=== PATIENT | male | born 1990 | race Two or more races ===

== ENCOUNTER 2017-04-07 08:18 | Emergency (ER) | payer MEDICAID, OTHER ==
[~2017-04-07] VITALS: Ht 157.5 cm; Wt 61.2 kg
[2017-04-07 08:45] VITALS: BP 140/92
== END 2017-04-07 09:28 | disposition home or self-care (01) ==
LOC: ER 08:18
DX: S60.221A Contusion of right hand, initial encounter (principal); L60.0 Ingrowing nail; F17.210 Nicotine dependence, cigarettes, uncomplicated
CPT/HCPCS: 73130

== ENCOUNTER 2017-12-08 12:32 | Emergency (ER) | payer MEDICAID ==
[~2017-12-08] VITALS: Ht 157.5 cm; Wt 65.8 kg
[2017-12-08] MEDS ORDERED: MIDAZOLAM HCL 5 MG/ML-1ML VIAL ONE (13:18)
[2017-12-08 13:24] LABS: Urine Bacteria NONE SEEN /hpf (None Seen); Urine Blood 3+ /uL (Negative); Urine Hyaline Cast FEW /lpf (0 - 2); Urine Mucus FEW (None Seen); Urine Specific Gravity 1.017 (1.001-1.035); Urine Sperm PRESENT /hpf (None Seen); Urine WBC 6 /hpf (0 - 3)
[2017-12-08] MEDS ORDERED: MIDAZOLAM HCL 5 MG/ML-1ML VIAL IV ONE (13:30)
[2017-12-08 13:36] LABS: Alcohol, Urine < 3.0 mg/dL (0-5); Amphetamine Screen, Urine POSITIVE (NEGATIVE); Barbiturate Scree,Urine NEGATIVE (NEGATIVE); Benzodiazephine Screen, Urine NEGATIVE (NEGATIVE); Cannabinoid Screen, Urine NEGATIVE (NEGATIVE); Cocaine Screen, Urine POSITIVE (NEGATIVE); Opiate Scree,Urine POSITIVE (NEGATIVE); Phencyclidine Screen, Urine NEGATIVE (NEGATIVE)
[2017-12-08] MEDS ORDERED: SODIUM CHLORIDE 0.9% 1,000 ML IV ONE (13:39)
[2017-12-08 14:10] VITALS: BP 122/72
[2017-12-08 14:28] LABS: Basophils # (auto) 0.1 uL; Basophils % (auto) 0.3 % (0.0-2.0); Eosinophils # (auto) 0 uL; Hematocrit 49.1 % (41.0-53.0); Hemoglobin 16.5 g/dL (13.5-17.5); Lymphocytes # (auto) 0.9 uL; Lymphocytes % (auto) 3.9 % (10.0-50.0); Mean Corpuscular Hemoglobin 31.4 pg (28.0-32.0); Mean Corpuscular Hgb Conc. 33.6 g/dL (32.0-36.0); Mean Corpuscular Volume 93.4 fL (80.0-100.0); Monocytes # (auto) 2.3 uL; Neutrophils # (auto) 19.6 uL; Neutrophils % (auto) 85.8 % (37.0-80.0); Nucleated Red Blood Cells % 0.1 %; Platelet Count (auto) 255 10^3/uL (140-450); Red Blood Cells 5.25 10^6/uL (4.5-5.90); White Blood Cell 22.8 10^3/uL (4.4-10.8)
[2017-12-08 14:50] LABS: Blood Alcohol < 3.0 mg/dL (0-5); Magnesium 3.5 mg/dL (1.6-2.6)
[2017-12-08 14:52] LABS: Albumin 4.2 g/dL (3.4-5.0); Calcium 7.5 mg/dL (8.5-10.1); Potassium 3.4 mmol/L (3.5-5.1)
[2017-12-08 15:01] LABS: Bilirubin, Total 2.3 mg/dL (0.2-1.0); Total Protein 8.4 g/dL (6.4-8.2)
== END 2017-12-08 14:50 | disposition left against medical advice (07) ==
LOC: ER 12:32
DX: G25.79 Other drug induced movement disorders (principal); F17.210 Nicotine dependence, cigarettes, uncomplicated; F14.10 Cocaine abuse, uncomplicated; F15.10 Other stimulant abuse, uncomplicated; F11.10 Opioid abuse, uncomplicated; Z53.29 Procedure and treatment not carried out because of patient's decision for other reasons
CPT/HCPCS: 36415; 70450; 71045; 80053; 80307; 80320; 81001; 83735; 84443; 85025; 94761; 96374; 99285; J2250; J7030

== ENCOUNTER 2018-08-15 15:44 | Emergency (ER) | payer MEDICAID ==
[~2018-08-15] VITALS: Ht 157.5 cm; Wt 68.0 kg
[2018-08-15 16:13] VITALS: BP 125/74
[2018-08-15] MEDS ORDERED: TETANUS-DIPTH-ACEL PERTUSSIS 0.5ML SYRG IM ONE (16:30)
== END 2018-08-15 17:00 | disposition home or self-care (01) ==
LOC: ER 15:47
DX: S51.851A Open bite of right forearm, initial encounter (principal); F17.210 Nicotine dependence, cigarettes, uncomplicated; W50.3XXA Accidental bite by another person, initial encounter; Y93.89 Activity, other specified; Y99.8 Other external cause status; Y92.89 Other specified places as the place of occurrence of the external cause
CPT/HCPCS: 90471; 90715

== ENCOUNTER 2024-07-10 02:57 | Emergency (ER) | payer MEDICAID ==
[~2024-07-10] VITALS: Ht 157.5 cm; Wt 62.0 kg
[2024-07-10 02:57] VITALS: BP 139/62; RESP 16; TEMP 98.6; O2SAT 95
--- NOTE | 2024-07-10 03:03 | ED.PDOC ---
HPI Comments 34 year old male presents to the ED with a chief complaint of chest pain onset today (07/10/24) about 2 hours ago. Patient states he was experiencing headache for the past day, was in bed when he began experiencing sharp chest pain. Patient had a CVA February 2024, was put on Aspirin, finished prescription and has not taken it since. He states he used Methamphetamine and Fentanyl 2 days ago. PMHx CVA, asthma, HTN, anxiety. Denies shortness of breath, dizziness, blurry vision, abdominal pain, nausea, vomiting, diarrhea, fevers, chills, cough, congestion. No other symptoms or modifying factors present at this time. Time Seen by MD: 02:55 Primary Care Provider: Florence Michael Notes: Medications, Allergies Allergies: Coded Allergies: NO KNOWN ALLERGIES (Unverified , 07/20/12) Information Source: Patient Mode of Arrival: Ambulatory Severity: Moderate Timing: Hours Duration: Since onset Prehospital treatment: None Location: Chest (L) Radiation: No Radiation Quality: Sharp Onset: At Rest Cardiac Risk Factors: HTN, Drugs PE Risk Factors: None History of: Aspirin Modifying Factors: Nothing Past Medical History PAST MEDICAL HISTORY: Anxiety, Asthma, CVA, HTN Surgical History: Denies all surgeries Family History Family History: Unknown Social History Smoker: Cigarettes Alcohol: Denies ETOH Use Drugs: Methamphetamine, Other Lives In: Home Constitutional: denies: chills, diaphoresis, fatigue, fever, malaise, sweats, weakness, others EENTM: denies: blurred vision, double vision, ear bleeding, ear discharge, ear drainage, ear pain, ear ringing, eye pain, eye redness, hearing loss, mouth pain, mouth swelling, nasal discharge, nose bleeding, nose congestion, nose pain, photophobia, tearing, throat pain, throat swelling, voice changes, others Respiratory: denies: cough, hemoptysis, orthopnea, SOB at rest, shortness of breath, SOB with excertion, stridor, wheezing, others Cardiovascular: reports: chest pain; denies: dizzy spells, diaphoresis, Dyspnea on exertion, edema, irregular heart beat, left arm pain, lightheadedness, palpitations, PND, syncope, others Gastrointestinal: denies: abdomen distended, abdominal pain, blood streaked bowels, constipated, diarrhea, dysphagia, difficulty swallowing, hematemesis, melena, nausea, poor appetite, poor fluid intake, rectal bleeding, rectal pain, vomiting, others Genitourinary: denies: burning, dysuria, flank pain, frequency, hematuria, incontinence, penile discharge, penile sore, pain, testicle pain, testicle swelling, urgency, others Neurological: reports: headache; denies: dizziness, fainting, left sided numbness, left sided weakness, numbness, paresthesia, pre-existing deficit, right sided numbness, right sided weakness, seizure, speech problems, tingling, tremors, weakness, others Musculoskeletal: denies: back pain, gout, joint pain, joint swelling, muscle pain, muscle stiffness, neck pain, others Integumetry: denies: bruises, change in color, change in hair/nails, dryness, laceration, lesions, lumps, rash, wounds, others Allergic/Immunocompromised: denies: Difficulty Healing, Frequent Infections, Hives, Itching, others Hematologic/Lymphatic: denies: anemia, blood clots, easy bleeding, easy bruis ing, swollen glands, others Endocrine: denies: excessive hunger, excessive sweating, excessive thirst, exc essive urination, flushing, intolerance to cold, intolerance to heat, unexplained weight gain, unexplained weight loss, others Psychiatric: denies: anxiety, bipolar disorder, depression, hopeless, panic disorder, schizophrenia, sleepless, suicidal, others All Other Systems: Reviewed and Negative Physical Exam General Appearance: No Apparent Distress, Normal HEENT: Normal ENT Inspection, Pharynx Normal, TMs Normal Neck: Full Range of Motion, Non-Tender, Normal, Normal Inspection Respiratory: Chest Non-Tender, Lungs Clear, No Accessory Muscle Use, No Respiratory Distress, Normal Breath Sounds Cardiovascular: No Edema, No JVD, No Murmur, No Gallop, Normal Peripheral Pulses, Regular Rate/Rhythm Breast Exam: Deferred Gastrointestinal: No Organomegaly, Non Tender, No Pulsatile Mass, Normal Bowel Sounds, Soft Genitalia: Deferred Pelvic: Deferred Rectal: Deferred Extremities: No calf tenderness, Normal capillary refill, Normal inspection, Normal range of motion, Non-tender, No pedal edema Musculoskeletal : Apperance: Normal Neurologic: Alert, 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 Was a procedure done?: No CP Differential Dx Differential Diagnosis: Angina, Electrolyte Disorder, Heart Failure, AK, PAC's, PSVT, Sinus Tachycardia, Torsades De Pointes, V-Fib, V-Tach, Other X-Ray, Labs, Meds, VS Vital Signs Date Time Temp Pulse Resp B/P (MAP) Pulse Ox O2 Delivery O2 Flow Rate FiO2 07/10/24 03:44 51 07/10/24 02:57 53 07/10/24 02:57 98.6 65 16 139/62 (87) 95 98.6 Lab Test 07/10/24 03:48 07/10/24 02:55 Range/Units Troponin I High Sensitivity < 3 L < 3 L </=54 ng/L White Blood Count 9.1 4.4-10.8 10^3/uL Red Blood Count 5.28 4.5-5.90 10^6/uL Hemoglobin 15.5 13.5-17.5 g/dL Hematocrit 45.8 41.0-53.0 % Mean Corpuscular Volume 86.7 80.0-100.0 fL Mean Corpuscular Hemoglobin 29.4 28.0-32.0 pg Mean Corpuscular Hemoglobin Concent 34.0 32.0-36.0 g/dL Red Cell Distribution Width 13.7 11.8-14.3 % Platelet Count 160 140-450 10^3/uL Mean Platelet Volume 6.8 L 6.9-10.8 fL Neutrophils (%) (Auto) 53.7 37.0-80.0 % Lymphocytes (%) (Auto) 34.4 10.0-50.0 % Monocytes (%) (Auto) 8.8 0.0-12.0 % Eosinophils (%) (Auto) 2.4 0.0-7.0 % Basophils (%) (Auto) 0.7 0.0-2.0 % Neutrophils # (Auto) 4.9 1.6-8.6 10 ^3/uL Lymphocytes # (Auto) 3.1 0.4-5.4 10 ^3/uL Monocytes # (Auto) 0.8 0-1.3 10 ^3/uL Eosinophils # (Auto) 0.2 0-0.8 10 ^3/uL Basophils # (Auto) 0.1 0-0.2 10 ^3/uL Nucleated Red Blood Cells 0.1 % Sodium Level 139 136-145 mmol/L Potassium Level 4.0 3.5-5.1 mmol/L Chloride Level 104 98-107 mmol/L Carbon Dioxide Level 28 20-31 mmol/L Anion Gap 7 5-15 Blood Urea Nitrogen 13 9-23 mg/dL Creatinine 0.89 0.700-1.30 mg/dL Glomerular Filtration Rate Calc 116 >90 mL/min BUN/Creatinine Ratio 14.6 10.0-20.0 Serum Glucose 107 H 74-106 mg/dL Calcium Level 9.2 8.7-10.4 mg/dL Total Bilirubin 0.3 0.2-1.0 mg/dL Aspartate Amino Transferase (AST) 19 13-40 U/L Alanine Aminotransferase (ALT) 19 7-40 U/L Alkaline Phosphatase 103 46-116 U/L Total Protein 6.8 5.7-8.2 g/dL Albumin 4.3 3.2-4.8 g/dL Time of 1ST Reevaluation: 03:25 Reevaluation 1ST: Unchanged Patient Education/Counseling: Diagnosis, Treatment, Prognosis Family Education/Counseling: No Family Present Departure 1 Departure Time of Disposition: 05:00 Impression: Primary Impression: Atypical chest pain Disposition: 01 HOME / SELF CARE / HOMELESS Condition: Stable Discharged With: Self Critical Care Note Critical Care Time?: No Stability Stability form required: No Heart Score Heart Score: Heart Score Response (Comments) Value History Slightly Suspicious 0 EKG Normal 0 Age <45 0 Risk Factors 1 or 2 risk factors 1 Troponin Normal limit 0 Total 1 I personally scribed for BANDAR COREY MD ([email or web address]) on 07/10/24 at 03:03. Electronically submitted by Rika Amado ([email or web address]). BANDAR COERY MD Jul 10, 2024 03:03
--- NOTE | 2024-07-10 03:30 | DVH ---
CHEST RADIOGRAPH Indication: chest pain Technique: Single frontal view of the chest was obtained COMPARISON: None FINDINGS: Lines and Tubes: None Lungs: Clear Pleura: No effusion. No pneumothorax. Cardiomediastinal contours: Unremarkable Bones: Unremarkable IMPRESSION: No acute disease.
[2024-07-10 03:36] LABS: Alanine Aminotransferase 19 U/L (7-40); Albumin 4.3 g/dL (3.2-4.8); Alkaline Phosphatase 103 U/L (46-116); Anion Gap 7 (5-15); Aspartate Aminotransferase 19 U/L (13-40); BUN/Creatinine Ratio 14.6 (10.0-20.0); Blood Urea Nitrogen 13 mg/dL (9-23); Calcium 9.2 mg/dL (8.7-10.4); Carbon Dioxide 28 mmol/L (20-31); Chloride 104 mmol/L (98-107); Sodium 139 mmol/L (136-145); Total Protein 6.8 g/dL (5.7-8.2)
[2024-07-10 03:37] LABS: Basophils # (auto) 0.1 10 ^3/uL (0-0.2); Basophils % (auto) 0.7 % (0.0-2.0); Eosinophils # (auto) 0.2 10 ^3/uL (0-0.8); Eosinophils % (auto) 2.4 % (0.0-7.0); Hematocrit 45.8 % (41.0-53.0); Hemoglobin 15.5 g/dL (13.5-17.5); Lymphocytes # (auto) 3.1 10 ^3/uL (0.4-5.4); Lymphocytes % (auto) 34.4 % (10.0-50.0); Mean Corpuscular Hemoglobin 29.4 pg (28.0-32.0); Mean Corpuscular Volume 86.7 fL (80.0-100.0); Monocytes # (auto) 0.8 10 ^3/uL (0-1.3); Monocytes % (auto) 8.8 % (0.0-12.0); Neutrophils # (auto) 4.9 10 ^3/uL (1.6-8.6); Neutrophils % (auto) 53.7 % (37.0-80.0); Nucleated Red Blood Cells % 0.1 %; Platelet Count (auto) 160 10^3/uL (140-450); Red Blood Cells 5.28 10^6/uL (4.5-5.90); Red Cell Distribution Width 13.7 % (11.8-14.3); White Blood Cell 9.1 10^3/uL (4.4-10.8)
[2024-07-10 03:39] LABS: Bilirubin, Total 0.3 mg/dL (0.2-1.0); Glucose 107 mg/dL (74-106)
[2024-07-10 03:44] VITALS: PULSE 51
--- NOTE | 2024-07-10 03:47 | ECG ---
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
== END 2024-07-10 05:15 | disposition home or self-care (01) ==
LOC: ER 02:57
DX: R07.89 Other chest pain (principal); F17.210 Nicotine dependence, cigarettes, uncomplicated; F19.90 Other psychoactive substance use, unspecified, uncomplicated; I10 Essential (primary) hypertension; F41.9 Anxiety disorder, unspecified; J45.909 Unspecified asthma, uncomplicated; Z86.73 Personal history of transient ischemic attack (TIA), and cerebral infarction without residual deficits
CPT/HCPCS: 36415; 71045; 80053; 84484; 85025; 93005

== ENCOUNTER 2024-08-25 14:45 | Emergency (ER) | payer MEDICAID ==
[~2024-08-25] VITALS: Ht 157.5 cm; Wt 68.0 kg
--- NOTE | 2024-08-25 15:56 | ED.PDOC ---
History of Present Illness(SKN HPI Comments 34 year old homeless male presents to the ER w/ prior MHx of CVA(x3 w/ left sided deficits), Asthma, Anxiety, HTN and the c/c of an animal bite to the posterior aspect of the right calf yesterday while walking on [facility]. Denies abnormal animal behavior Denies history of immunocompromise (HIV hep B hep C) Denies fever chills night sweats Chief Complaint: Lower Extremity Time Seen by MD: 15:30 Primary Care Provider: Florence History of Present Illness: Nurses Notes, Medications, Allergies Allergies: Coded Allergies: NO KNOWN ALLERGIES (Unverified , 07/20/12) Information Source: Patient Mode of Arrival: Wheelchair Severity: Moderate Timing: Hours Duration: Since onset, Hours Prehospital treatment: None Location: Leg Mechanism: Dog Developed: Generalized erythema Occurence: Outdoors Object: None Condition of Object: None Wound Type: Puncture (by a dog bite) Immunization Status of Animal: Unknown Tetanus: Unknown History of: None Associated Signs and Symptoms: Redness, Swelling Past Medical History PAST MEDICAL HISTORY: Anxiety, Asthma, CVA (x3 w/ left sided deficits), HTN Surgical History: Denies all surgeries Family History Family History: Reviewed,noncontributory to illness, Unknown Social History Smoker: Cigarettes Alcohol: Denies ETOH Use Drugs: Marijuana, Methamphetamine Lives In: Home Constitutional: denies: chills, diaphoresis, fatigue, fever, malaise, sweats, weakness, others EENTM: denies: blurred vision, double vision, ear bleeding, ear discharge, ear drainage, ear pain, ear ringing, eye pain, eye redness, hearing loss, mouth pain, mouth swelling, nasal discharge, nose bleeding, nose congestion, nose pain, photophobia, tearing, throat pain, throat swelling, voice changes, others Respiratory: denies: cough, hemoptysis, orthopnea, SOB at rest, shortness of breath, SOB with excertion, stridor, wheezing, others Cardiovascular: reports: edema (+1 pitting); denies: chest pain, dizzy spells, diaphoresis, Dyspnea on exertion, irregular heart beat, left arm pain, lightheadedness, palpitations, PND, syncope, others Gastrointestinal: denies: abdomen distended, abdominal pain, blood streaked bowels, constipated, diarrhea, dysphagia, difficulty swallowing, hematemesis, melena, nausea, poor appetite, poor fluid intake, rectal bleeding, rectal pain, vomiting, others Genitourinary: denies: burning, dysuria, flank pain, frequency, hematuria, incontinence, penile discharge, penile sore, pain, testicle pain, testicle swelling, urgency, others Neurological: denies: dizziness, fainting, headache, left sided numbness, left sided weakness, numbness, paresthesia, pre-existing deficit, right sided numbness, right sided weakness, seizure, speech problems, tingling, tremors, weakness, others Musculoskeletal: denies: back pain, gout, joint pain, joint swelling, muscle pain, muscle stiffness, neck pain, others Integumetry: reports: others (puncture wound S/P dog bite); denies: bruises, change in color, change in hair/nails, dryness, laceration, lesions, lumps, rash, wounds Allergic/Immunocompromised: denies: Difficulty Healing, Frequent Infections, Hives, Itching, others Hematologic/Lymphatic: denies: anemia, blood clots, easy bleeding, easy bruising, swollen glands, others Endocrine: denies: excessive hunger, excessive sweating, excessive thirst, excessive urination, flushing, intolerance to cold, intolerance to heat, unexplained weight gain, unexplained weight loss, others Psychiatric: denies: anxiety, bipolar disorder, depression, hopeless, panic disorder, schizophrenia, sleepless, suicidal, others All Other Systems: Reviewed and Negative Physical Exam General Appearance: No Apparent Distress, Normal HEENT: Normal ENT Inspection, Pharynx Normal, TMs Normal Neck: Full Range of Motion, Non-Tender, Normal, Normal Inspection Respiratory: Chest Non-Tender, Lungs Clear, No Accessory Muscle Use, No Respiratory Distress, Normal Breath Sounds Cardiovascular: No Murmur, No Gallop, Regular Rate/Rhythm, Other Breast Exam: Deferred Gastrointestinal: No Organomegaly, Non Tender, No Pulsatile Mass, Normal Bowel Sounds, Soft Genitalia: Deferred Pelvic: Deferred Rectal: Deferred Extremities: No calf tenderness, Normal capillary refill, Normal inspection, Normal range of motion, Non-tender, No pedal edema Musculoskeletal : Location: Right Extremity Location: Great Toe (right medial aspect of the great toe infected w/ mild discharge and tender to touch), Leg (erythema, warm to touch, +1 pitting edema. DP 2+. Cap < 3 sec. 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 Was a procedure done?: No Images 1 - 1 puncture wound. No dc. Swelling throughout the lower leg. Warmth to touch. No fluctuance. Differential Diagnosis (INTG) Differential Diagnosis: Cellulitis, Contusion, Puncture Wound, Other X-Ray, Labs, Meds, VS Vital Signs Date Time Temp Pulse Resp B/P (MAP) Pulse Ox O2 Delivery O2 Flow Rate FiO2 08/25/24 17:21 86 16 94 Room Air* 0 21 08/25/24 17:20 98.4 86 16 113/79 (90) 94 98.4 08/25/24 15:46 99.8 95 16 108/68 (81) 96 99.8 Lab Test 08/25/24 19:00 08/25/24 18:57 08/25/24 15:30 Range/Units Urine Color Yellow Yellow Urine Clarity Clear Clear Urine pH 6.5 5.0-9.0 Urine Specific [place] > 1.050 H 1.001-1.035 Urine Protein 1+ H Negative Urine Ketones Negative Negative Urine Blood 3+ H Negative /uL Urine Nitrite Negative Negative Urine Bilirubin Negative Negative Urine Urobilinogen 3 H Negative mg/dL Urine Leukocyte Esterase Negative Negative /uL Urine RBC 22 0 - 3 /hpf Urine Microscopic WBC 18 H 0-3 /HPF Urine Squamous Epithelial Cells None seen <5 /hpf Urine Bacteria None seen None Seen /hpf Urine Yeast (Budding) Occasional None Seen /hpf Urine Glucose Normal Normal mg/dL Urine Opiates Screen Neg NEGATIVE Urine Fentanyl Screen Pos NEGATIVE Urine Barbiturates Screen Neg NEGATIVE Urine Phencyclidine Screen Neg NEGATIVE Urine Amphetamines Screen Pos NEGATIVE Urine Benzodiazepines Screen Neg NEGATIVE Urine Cocaine Screen Neg NEGATIVE Urine Cannabinoids Screen Neg NEGATIVE Erythrocyte Sedimentation Rate 20 0-20 mm/hr White Blood Count 24.8 H 4.4-10.8 10^3/uL Red Blood Count 4.64 4.5-5.90 10^6/uL Hemoglobin 14.0 13.5-17.5 g/dL Hematocrit 41.4 41.0-53.0 % Mean Corpuscular Volume 89.3 80.0-100.0 fL Mean Corpuscular Hemoglobin 30.1 28.0-32.0 pg Mean Corpuscular Hemoglobin Concent 33.7 32.0-36.0 g/dL Red Cell Distribution Width 14.6 H 11.8-14.3 % Platelet Count 328 140-450 10^3/uL Mean Platelet Volume 6.4 L 6.9-10.8 fL Neutrophils (%) (Auto) 77.2 37.0-80.0 % Lymphocytes (%) (Auto) 9.7 L 10.0-50.0 % Monocytes (%) (Auto) 12.7 H 0.0-12.0 % Eosinophils (%) (Auto) 0.1 0.0-7.0 % Basophils (%) (Auto) 0.3 0.0-2.0 % Neutrophils # (Auto) 19.1 H 1.6-8.6 10 ^3/uL Lymphocytes # (Auto) 2.4 0.4-5.4 10 ^3/uL Monocytes # (Auto) 3.1 H 0-1.3 10 ^3/uL Eosinophils # (Auto) 0 0-0.8 10 ^3/uL Basophils # (Auto) 0.1 0-0.2 10 ^3/uL Nucleated Red Blood Cells 0.0 % Sodium Level 136 136-145 mmol/L Potassium Level 4.0 3.5-5.1 mmol/L Chloride Level 104 98-107 mmol/L Carbon Dioxide Level 23 20-31 mmol/L Anion Gap 9 5-15 Blood Urea Nitrogen 9 9-23 mg/dL Creatinine 0.90 0.700-1.30 mg/dL Glomerular Filtration Rate Calc 116 >90 mL/min BUN/Creatinine Ratio 10.0 10.0-20.0 Serum Glucose 109 H 74-106 mg/dL Lactic Acid Level 1.8 0.4-2.0 mmol/L Calcium Level 9.1 8.7-10.4 mg/dL Total Bilirubin 1.0 0.2-1.0 mg/dL Aspartate Amino Transferase (AST) 22 13-40 U/L Alanine Aminotransferase (ALT) 14 7-40 U/L Alkaline Phosphatase 100 46-116 U/L C-Reactive Protein High Sensitivity 8.63 H <1.0 mg/dL Total Protein 6.5 5.7-8.2 g/dL Albumin 3.6 3.2-4.8 g/dL Current Medications Medications (Trade) Dose Ordered Sig/Je Route Start Time Stop Time Status Last Admin Sodium Chloride 1,000 ml @ 1,000 mls/hr Q1H ONCE IV 08/25/24 15:45 08/25/24 16:44 DC 08/25/24 17:39 Ceftriaxone Sodium 50 ml @ 100 mls/hr ONCE ONCE IV 08/25/24 15:45 08/25/24 16:14 DC 08/25/24 17:39 Ampicillin Sodium/ Sulbactam Sodium 3 gm/Sodium Chloride 100 ml @ 100 mls/hr ONCE STAT IV 08/25/24 15:40 08/25/24 16:39 DC 08/25/24 18:47 Diphtheria/ Tetanus/Acell Pertussis (Boostrix T-Dap) 0.5 ml ONCE ONCE IM 08/25/24 15:45 08/25/24 15:46 DC 08/25/24 17:40 X-Ray, Labs, Meds, VS Comment 34M presents to the ER w/ prior MHx of CVA(x3 w/ left sided deficits), Asthma, Anxiety, HTN and the c/c of an animal bite. Patient arrives alert and oriented, ABC's intact, afebrile, vital signs stable, saturating well in room air Peripheral IV insertion+ labs were ordered. CBC was ordered to exclude anemia, blood loss, or infection. CMP was ordered to exclude electrolyte abnormalities, renal failure, dehydration, hyperglycemia and/or liver enzyme abnormalities. Lactic acid and blood cultures were ordered Sed Rate + CRP Urinalysis was ordered to rule out UTI or hematuria. Diagnostic imaging ordered by me and results interpreted by radiology : CT results showed: Extensive fat stranding, edema, and skin thickening throughout the right lower extremity is suggestive of cellulitis. No discernible abscess identified. US results showed: Negative DVT Patient was given:Rocephin, Unasyn, and IV fluids. Tetanus was updated. Tolerated medications with no adverse reaction. The area of infection does not appear to have any loculations/induration based on physical exam. Patient well appearing. VSS. Given History, Exam, and Workup I have low suspicion for Necrotizing Fasciitis Osteomyelitis. Considered DVT and abscess formation based on presenting symptoms. The patient's workup reveals that the patient needs further evaluation and/or treatment for the above medical conditions. Patient verbalized understanding of the above and is awaiting further evaluation by the admitting service. 1800: Pending CT scan. Patient will be endorsed to Po for admission. Time of 1ST Reevaluation: 15:30 Reevaluation 1ST: Unchanged Time of 2ND Reevaluation: 17:20 Reevaluation 2ND: Unchanged Patient Education/Counseling: Diagnosis, Treatment, Prognosis Family Education/Counseling: No Family Present SEPSIS Sepsis Screen Physician Orders Rt Lower Dvt (08/25/24 15:40) Rt Lower Extremity W Con (08/25/24 15:40) Blood Culture (08/25/24 15:40) Vital Signs Date Time Temp Pulse Resp B/P (MAP) Pulse Ox O2 Delivery O2 Flow Rate FiO2 08/25/24 17:21 86 16 94 Room Air* 0 21 08/25/24 17:20 98.4 86 16 113/79 (90) 94 98.4 08/25/24 15:46 99.8 95 16 108/68 (81) 96 99.8 Laboratory Tests Test 08/25/24 15:30 Lactic Acid Level 1.8 mmol/L (0.4-2.0) White Blood Count 24.8 10^3/uL (4.4-10.8) H Departure 1 Departure Time of Disposition: 18:04 Impression: Primary Impression: Dog bite Qualified Codes: W54.0XXA - Bitten by dog, initial encounter Additional Impressions: Cellulitis of right leg Ingrown toenail UTI (urinary tract infection) Qualified Codes: N30.00 - Acute cystitis without hematuria Disposition: ADMITTED INPATIENT Condition: Serious Critical Care Note Critical Care Time?: No Stability Stability form required: No Heart Score Heart Score: Heart Score Response (Comments) Value History N/A 0 EKG N/A 0 Age N/A 0 Risk Factors N/A 0 Troponin N/A 0 Total 0 I personally scribed for DESMOND SCHAFER NP ([email or web address]) on 08/25/24 at 15:56. Electronically submitted by Derek Reynolds ([email or web address]). DESMOND SCHAFER NP Aug 25, 2024 15:56 LYNNE TAM Aug 25, 2024 18:05
[2024-08-25 16:09] LABS: Hematocrit 41.4 % (41.0-53.0); Hemoglobin 14.0 g/dL (13.5-17.5); Mean Corpuscular Hemoglobin 30.1 pg (28.0-32.0); Mean Corpuscular Volume 89.3 fL (80.0-100.0); Nucleated Red Blood Cells % 0.0 %
[2024-08-25 16:30] LABS: Alanine Aminotransferase 14 U/L (7-40); Alkaline Phosphatase 100 U/L (46-116); Anion Gap 9 (5-15); BUN/Creatinine Ratio 10.0 (10.0-20.0); Calcium 9.1 mg/dL (8.7-10.4); Carbon Dioxide 23 mmol/L (20-31); Chloride 104 mmol/L (98-107); Potassium 4.0 mmol/L (3.5-5.1); Sodium 136 mmol/L (136-145); Total Protein 6.5 g/dL (5.7-8.2)
[2024-08-25 16:31] LABS: Albumin 3.6 g/dL (3.2-4.8); Bilirubin, Total 1.0 mg/dL (0.2-1.0); Blood Urea Nitrogen 9 mg/dL (9-23); Glucose 109 mg/dL (74-106)
[2024-08-25 17:20] VITALS: BP 113/79; TEMP 98.4
[2024-08-25 17:21] VITALS: PULSE 86; RESP 16; O2SAT 94
[2024-08-25] MEDS: cefTRIAXone 1GM/50ML D5W 50 ML IV ONE (17:39)
[2024-08-25] MEDS: SODIUM CHLORIDE 0.9% 1,000 ML IV ONE (17:39)
[2024-08-25] MEDS: TETANUS-DIPTH-ACEL PERTUSSIS 0.5ML SYR Tdap IM ONE (17:40)
--- NOTE | 2024-08-25 17:53 | DVH ---
Right lower extremity venous duplex Clinical History: R/o dvt Comparison: None Technique: Duplex Doppler evaluation of the deep venous system of the right lower extremity from the common femo ral vein to the popliteal vein including color Doppler and spectral/pulsed waveform analysis was perf ormed. Findings: The common femoral vein demonstrates appropriate compressibility and waveform variability. There is compressibility/patency of the great saphenous vein at the proximal thigh. The femoral vein demonstrates appropriate compressibility and waveform variability. The deep femoral vein demonstrates appropriate compressibility and waveform variability. The popliteal vein demonstrates appropriate compressibility and waveform variability. There is normal compressibility at the tibioperoneal trunk. Prominent 4.4 cm lymph node is seen in the right groin Impression: 1. No right femoropopliteal venous thrombosis. 2. Prominent 4.4 cm lymph node is seen in the right groin
[2024-08-25] MEDS: AMPICILLIN & SULBACTAM SODIUM 3 GM in SODIUM CHL 0.9% 100 ML IV STA (18:47)
[2024-08-25] MEDS: IOHEXOL 300 MG/ML 100ML BOTTLE IJ ONE (18:52)
[2024-08-25] MEDS ORDERED: ACETAMINOPHEN 325 MG TAB PO PRN (19:30)
[2024-08-25] MEDS ORDERED: TEMAZEPAM 15 MG CAP PO PRN (19:30)
[2024-08-25] MEDS ORDERED: VANCOMYCIN PER PHARMACY 0 MG IV SCH (19:30)
[2024-08-25] MEDS ORDERED: ONDANSETRON HCL 4 MG/2 ML VIAL IV PRN (19:30)
[2024-08-25] MEDS ORDERED: HYDROcodone-ACET 5/325MG TAB PO PRN (19:30)
--- NOTE | 2024-08-25 19:51 | DVH ---
INDICATION: Dog bite to right posterior calf. r/o abscess formation COMPARISON: None TECHNIQUE: CT of the right leg was performed with contrast. Volume transverse images were obtained an d reconstructed in multiple planes using bone and soft tissue algorithms. All CT scans at this medical facility are performed using dose modulation techniques as appropriate t o a performed exam including the following: Automated exposure control was utilized; adjustment of th e MA and/or KV according to patient size; and use of iterative reconstruction technique. Radiation Dose Information: CT Dose: CTDI volume is 7.75 mGy. Dose-length product is 494.79 mGy*cm Contrast: 100 mL of Omni 300 was injected. FINDINGS: Extensive fat stranding, edema, and skin thickening throughout the right lower extremity is suggestiv e of cellulitis. No discernible abscess identified. The alignment is normal. The joint spaces are normal. There is no fracture, dislocation or aggressive osseous lesion. There is no joint effusion. IMPRESSION: Extensive fat stranding, edema, and skin thickening throughout the right lower extremity is suggestiv e of cellulitis. No discernible abscess identified.
[2024-08-25] MEDS: VANCOMYCIN 1.5GM/300ML 300 ML IV ONE (20:21)
[2024-08-25 21:23] LABS: Urine Budding Yeast OCCASIONAL /hpf (None Seen); Urine Protein, UAD 1+ (Negative)
[2024-08-25 21:30] LABS: Amphetamine Screen, Urine Pos (NEGATIVE); Barbiturate Scree,Urine Neg (NEGATIVE); Benzodiazephine Screen, Urine Neg (NEGATIVE); Cannabinoid Screen, Urine Neg (NEGATIVE); Cocaine Screen, Urine Neg (NEGATIVE); Opiate Scree,Urine Neg (NEGATIVE); Phencyclidine Screen, Urine Neg (NEGATIVE)
[2024-08-25] MEDS ORDERED: ATORVASTATIN 20 MG TAB PO SCH (22:00)
[2024-08-26] MEDS ORDERED: cefTRIAXone 1GM/50ML D5W 50 ML IV SCH (09:00)
== END 2024-08-25 21:15 | disposition left against medical advice (07) ==
LOC: ER 14:49 → OVERFLOW 19:23 → UNDOADMIN 19:23 → UNDODISIN 21:15 → OVERFLOW 21:15
DX: S81.851A Open bite, right lower leg, initial encounter (principal); L03.115 Cellulitis of right lower limb; L60.0 Ingrowing nail; N39.0 Urinary tract infection, site not specified; F17.210 Nicotine dependence, cigarettes, uncomplicated; J45.909 Unspecified asthma, uncomplicated; I10 Essential (primary) hypertension; Z86.73 Personal history of transient ischemic attack (TIA), and cerebral infarction without residual deficits; F12.90 Cannabis use, unspecified, uncomplicated; F15.90 Other stimulant use, unspecified, uncomplicated; W54.0XXA Bitten by dog, initial encounter; Y93.89 Activity, other specified; Y92.89 Other specified places as the place of occurrence of the external cause; Y99.8 Other external cause status
CPT/HCPCS: 36415; 73701; 80053; 80307; 81001; 83605; 85025; 85652; 86141; 87040; 90471; 90715; 93971; 96365; 96367; 99285; J0696; J3375; J7030; Q9967; 96372; G0378

== ENCOUNTER 2024-08-26 14:08 | Inpatient (IN) | payer MEDICAID ==
[~2024-08-26] VITALS: Ht 157.5 cm; Wt 68.0 kg
[2024-08-26 14:14] VITALS: TEMP 99.3
[2024-08-26] MEDS: AMPICILLIN & SULBACTAM SODIUM 3 GM in SODIUM CHL 0.9% 100 ML IV STA (14:20)
[2024-08-26 15:09] LABS: Hematocrit 38.7 % (41.0-53.0); Hemoglobin 13.3 g/dL (13.5-17.5); Mean Corpuscular Hemoglobin 30.3 pg (28.0-32.0); Mean Corpuscular Volume 87.9 fL (80.0-100.0); Nucleated Red Blood Cells % 0.0 %
--- NOTE | 2024-08-26 15:13 | ED.PDOC ---
History of Present Illness HPI Comments 34 year old homeless male presents to the ER w/ prior MHx of CVA(x3 w/ left sided deficits), Asthma, Anxiety, HTN and the c/c of an animal bite to the posterior aspect of the right calf yesterday while walking on [facility]. Denies abnormal animal behavior Immunization status up-to-date/not up-to-date Denies abnormal animal behavior Denies history of immunocompromise (HIV hep B hep C) Denies fever chills night sweats Denies redness around the area Chief Complaint: Wound Check Time Seen by MD: 15:10 Primary Care Provider: UNKNOWN Reviewed Notes: Nurses Notes, Medications, Allergies Allergies: Coded Allergies: NO KNOWN ALLERGIES (Unverified , 07/20/12) Information Source: Patient Mode of Arrival: Ambulatory Severity: Moderate Timing: Days Duration: Since onset, Days Prehospital treatment: None Past Medical History PAST MEDICAL HISTORY: Anxiety, Asthma, CVA (x3 w/ left sided deficits), HTN Surgical History: Denies all surgeries Family History Family History: Reviewed,noncontributory to illness, Unknown Social History Smoker: Cigarettes Alcohol: Denies ETOH Use Drugs: Marijuana, Methamphetamine, Other (fent) Lives In: Home Constitutional: reports: others (animal bite); denies: chills, diaphoresis, fatigue, fever, malaise, sweats, weakness EENTM: denies: blurred vision, double vision, ear bleeding, ear discharge, ear drainage, ear pain, ear ringing, eye pain, eye redness, hearing loss, mouth pain, mouth swelling, nasal discharge, nose bleeding, nose congestion, nose pain, photophobia, tearing, throat pain, throat swelling, voice changes, others Respiratory: denies: cough, hemoptysis, orthopnea, SOB at rest, shortness of breath, SOB with excertion, stridor, wheezing, others Cardiovascular: denies: chest pain, dizzy spells, diaphoresis, Dyspnea on exertion, edema, irregular heart beat, left arm pain, lightheadedness, palpitations, PND, syncope, others Gastrointestinal: denies: abdomen distended, abdominal pain, blood streaked bowels, constipated, diarrhea, dysphagia, difficulty swallowing, hematemesis, melena, nausea, poor appetite, poor fluid intake, rectal bleeding, rectal pain, vomiting, others Genitourinary: denies: burning, dysuria, flank pain, frequency, hematuria, incontinence, penile discharge, penile sore, pain, testicle pain, testicle swelling, urgency, others Neurological: denies: dizziness, fainting, headache, left sided numbness, left sided weakness, numbness, paresthesia, pre-existing deficit, right sided numbness, right sided weakness, seizure, speech problems, tingling, tremors, weakness, others Musculoskeletal: denies: back pain, gout, joint pain, joint swelling, muscle pain, muscle stiffness, neck pain, others Integumetry: denies: bruises, change in color, change in hair/nails, dryness, laceration, lesions, lumps, rash, wounds, others Allergic/Immunocompromised: denies: Difficulty Healing, Frequent Infections, Hives, Itching, others Hematologic/Lymphatic: denies: anemia, blood clots, easy bleeding, easy bruising, swollen glands, others Endocrine: denies: excessive hunger, excessive sweating, excessive thirst, excessive urination, flushing, intolerance to cold, intolerance to heat, unexplained weight gain, unexplained weight loss, others Psychiatric: denies: anxiety, bipolar disorder, depression, hopeless, panic disorder, schizophrenia, sleepless, suicidal, others All Other Systems: Reviewed and Negative Physical Exam General Appearance: No Apparent Distress, Normal HEENT: Normal ENT Inspection, Pharynx Normal, TMs Normal Neck: Full Range of Motion, Non-Tender, Normal, Normal Inspection Respiratory: Chest Non-Tender, Lungs Clear, No Accessory Muscle Use, No Respiratory Distress, Normal Breath Sounds Cardiovascular: No Edema, No JVD, No Murmur, No Gallop, Normal Peripheral Pulses, Regular Rate/Rhythm Breast Exam: Deferred Gastrointestinal: No Organomegaly, Non Tender, No Pulsatile Mass, Normal Bowel Sounds, Soft Genitalia: Deferred Pelvic: Deferred Rectal: Deferred Extremities: No calf tenderness, Normal capillary refill, Normal inspection, Normal range of motion, Non-tender, No pedal edema Musculoskeletal : Location: Right Extremity Location: Great Toe (right medial aspect of the great toe infected w/ mild discharge and tender to touch), Leg (erythema, warm to touch, +1 pitting edema. DP 2+. Cap < 3 sec. 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 Was a procedure done?: No Images 1 - 1 puncture wound. No dc. Swelling throughout the lower leg. Warmth to touch. No fluctuance. 2 - 1 puncture wound. No dc. Swelling throughout the lower leg. Warmth to touch. No fluctuance. Differential Dx Considerations may include: cellulitis X-Ray, Labs, Meds, VS Vital Signs Date Time Temp Pulse Resp B/P (MAP) Pulse Ox O2 Delivery O2 Flow Rate FiO2 08/26/24 17:45 80 14 108/66 (80) 96 08/26/24 14:14 99.3 99 18 123/74 (90) 95 99.3 Lab Test 08/26/24 18:24 08/26/24 14:50 Range/Units Urine Color Yellow Yellow Urine Clarity Clear Clear Urine pH 6.5 5.0-9.0 Urine Specific [place] 1.042 H 1.001-1.035 Urine Protein 2+ H Negative Urine Ketones Trace Negative Urine Blood 3+ H Negative /uL Urine Nitrite Negative Negative Urine Bilirubin 1+ Negative Urine Urobilinogen Over Negative mg/dL Urine Leukocyte Esterase 1+ Negative /uL Urine RBC 252 0 - 3 /hpf Urine Microscopic WBC 20 H 0-3 /HPF Urine Squamous Epithelial Cells Few <5 /hpf Urine Bacteria Few H None Seen /hpf Urine Mucus Few None Seen Urine Glucose Normal Normal mg/dL Urine Opiates Screen Neg NEGATIVE Urine Fentanyl Screen Pos NEGATIVE Urine Barbiturates Screen Neg NEGATIVE Urine Phencyclidine Screen Neg NEGATIVE Urine Amphetamines Screen Pos NEGATIVE Urine Benzodiazepines Screen Neg NEGATIVE Urine Cocaine Screen Neg NEGATIVE Urine Cannabinoids Screen Neg NEGATIVE White Blood Count 19.4 H 4.4-10.8 10^3/uL Red Blood Count 4.40 L 4.5-5.90 10^6/uL Hemoglobin 13.3 L 13.5-17.5 g/dL Hematocrit 38.7 L 41.0-53.0 % Mean Corpuscular Volume 87.9 80.0-100.0 fL Mean Corpuscular Hemoglobin 30.3 28.0-32.0 pg Mean Corpuscular Hemoglobin Concent 34.4 32.0-36.0 g/dL Red Cell Distribution Width 14.8 H 11.8-14.3 % Platelet Count 388 140-450 10^3/uL Mean Platelet Volume 6.6 L 6.9-10.8 fL Neutrophils (%) (Auto) 79.8 37.0-80.0 % Lymphocytes (%) (Auto) 8.0 L 10.0-50.0 % Monocytes (%) (Auto) 11.5 0.0-12.0 % Eosinophils (%) (Auto) 0.3 0.0-7.0 % Basophils (%) (Auto) 0.4 0.0-2.0 % Neutrophils # (Auto) 15.5 H 1.6-8.6 10 ^3/uL Lymphocytes # (Auto) 1.5 0.4-5.4 10 ^3/uL Monocytes # (Auto) 2.2 H 0-1.3 10 ^3/uL Eosinophils # (Auto) 0.1 0-0.8 10 ^3/uL Basophils # (Auto) 0.1 0-0.2 10 ^3/uL Nucleated Red Blood Cells 0.0 % Erythrocyte Sedimentation Rate 67 H 0-20 mm/hr Sodium Level 139 136-145 mmol/L Potassium Level 4.3 3.5-5.1 mmol/L Chloride Level 105 98-107 mmol/L Carbon Dioxide Level 26 20-31 mmol/L Anion Gap 8 5-15 Blood Urea Nitrogen 12 9-23 mg/dL Creatinine 0.89 0.700-1.30 mg/dL Glomerular Filtration Rate Calc 116 >90 mL/min BUN/Creatinine Ratio 13.5 10.0-20.0 Serum Glucose 95 74-106 mg/dL Lactic Acid Level 1.2 0.4-2.0 mmol/L Calcium Level 9.0 8.7-10.4 mg/dL Total Bilirubin 0.5 0.2-1.0 mg/dL Aspartate Amino Transferase (AST) 20 13-40 U/L Alanine Aminotransferase (ALT) 12 7-40 U/L Alkaline Phosphatase 96 46-116 U/L C-Reactive Protein High Sensitivity 12.52 H <1.0 mg/dL Total Protein 6.5 5.7-8.2 g/dL Albumin 3.6 3.2-4.8 g/dL Current Medications Medications (Trade) Dose Ordered Sig/Je Route Start Time Stop Time Status Last Admin Ceftriaxone Sodium 50 ml @ 100 mls/hr ONCE ONCE IV 08/26/24 14:30 08/26/24 14:59 DC 08/26/24 15:47 Metronidazole 100 ml @ 100 mls/hr ONCE ONCE IV 08/26/24 14:30 08/26/24 15:29 DC 08/26/24 15:47 X-Ray, Labs, Meds, VS Comment 34M presents to the ER w/ prior MHx of CVA(x3 w/ left sided deficits), Asthma, Anxiety, HTN and the c/c of an animal bite. Seen yesterday for the same complaint but ELOPED Patient arrives alert and oriented, ABC's intact, afebrile, vital signs stable, saturating well in room air CT results showed: Extensive fat stranding, edema, and skin thickening throughout the right lower extremity is suggestive of cellulitis. No discernible abscess identified. US results showed: Negative DVT Peripheral IV insertion+ labs were ordered. CBC was ordered to exclude anemia, blood loss, or infection. CMP was ordered to exclude electrolyte abnormalities, renal failure, dehydration, hyperglycemia and/or liver enzyme abnormalities. Lactic acid and blood cultures were ordered Sed Rate + CRP Urinalysis was ordered to rule out UTI or hematuria. Ordered Rocephin, Unasyn, metronidazole The patient's workup reveals that the patient needs further evaluation and/or treatment for the above medical conditions. Patient verbalized understanding of the above and is awaiting further evaluation by the admitting service. 18:50 - patient states he would like to sign out against medical advice Several attempts were made to convince patient to stay for further evaluation/treatment without success Risks of signing out AMA discussed with patient, including risk of partial/permanent disability, risk of limb loss and risk of . Patient alert and oriented x4 prior to sign out AMA. Patient verbalized full understanding of sign out AMA Patient signed out of ER against medical advice This patient has elected to leave against medical advice. In my opinion, the patient has capacity to leave AMA. The patient is clinically sober, free from distracting injury, appears to have intact insight, judgment, and reason; therefore, the patient has the capacity to make decisions. I explained to the patient that these symptoms may represent a serious underlying medical condition and the patient verbalized understanding of my concerns and understands the consequences of leaving without complete evaluation. I had a discussion with the patient about their workup and results, and informed the patient what the next step in diagnosis and treatment would be, and they verbalized understanding of this as well. I explained the risks of leaving without further workup or treatment, which included reasonably foreseeable complications such as , serious injury, prolonged illness, and permanent disability. I discussed the specific benefits of additional treatment and also offered alternatives to departing AMA, such as assigning the patient a different provider or an alternate workup pathway. However, the patient declined and insisted on leaving against medical advice. I answered all of the patient's questions about their condition and I asked them to follow up with their PCP as soon as possible or return to this ER for further evaluation whenever they choose. Patient voiced understanding. Time of 1ST Reevaluation: 15:40 Reevaluation 1ST: Unchanged Patient Education/Counseling: Diagnosis, Treatment, Prognosis Family Education/Counseling: No Family Present SEPSIS Sepsis Screen Date sepsis recognized/suspect: Aug 26, 2024 Time Sepsis recognized/suspect: 1413 Recent Procedure: No On Antibiotic Therapy: No Respiratory Rate >20: No Heart Rate >90: Yes Temp<36 C (96.8 F) or >38.3 C: No SBP <90 or MAP <65 mmHG: No New Acute Mental Status Change: No Is the patient on CPAP, BIPAP,: No Physician Orders Heplock Iv (08/26/24 ) Blood Culture (08/26/24 14:20) Vital Signs Date Time Temp Pulse Resp B/P (MAP) Pulse Ox O2 Delivery O2 Flow Rate FiO2 08/26/24 17:45 80 14 108/66 (80) 96 08/26/24 14:14 99.3 99 18 123/74 (90) 95 99.3 Laboratory Tests Test 08/26/24 14:50 Lactic Acid Level 1.2 mmol/L (0.4-2.0) White Blood Count 19.4 10^3/uL (4.4-10.8) H Medications Medications Dose Ordered Sig/Je Route Start Time Stop Time Status Last Admin Dose Admin Ceftriaxone Sodium 50 ml @ 100 mls/hr ONCE ONCE IV 08/26/24 14:30 08/26/24 14:59 DC 08/26/24 15:47 Metronidazole 100 ml @ 100 mls/hr ONCE ONCE IV 08/26/24 14:30 08/26/24 15:29 DC 08/26/24 15:47 Departure 1 Departure Time of Disposition: 18:50 Impression: Primary Impression: Dog bite Qualified Codes: W54.0XXA - Bitten by dog, initial encounter Additional Impressions: Cellulitis of right leg Ingrown toenail UTI (urinary tract infection) Qualified Codes: N30.00 - Acute cystitis without hematuria Disposition: LEFT AGAINST MEDICAL ADVICE Condition: Serious Critical Care Note Critical Care Time?: No Stability Stability form required: No Heart Score Heart Score: Heart Score Response (Comments) Value History N/A 0 EKG N/A 0 Age N/A 0 Risk Factors N/A 0 Troponin N/A 0 Total 0 I personally scribed for DESMOND SCHAFER NP ([email or web address]) on 08/26/24 at 15:13. Electronically submitted by Derek Reynolds ([email or web address]). I personally scribed for EDSMOND SCHAFER NP ([email or web address]) on 08/26/24 at 16:30. Electronically submitted by Derek Reynolds ([email or web address]). I personally scribed for DESMOND SCHAFER QUARRY BOSS ([email or web address]) on 08/26/24 at 16:31. Electronically submitted by Derek Reynolds ([email or web address]). DESMOND SCHAFER NP Aug 26, 2024 15:13 LITTLE MCMAHON Aug 26, 2024 18:56
[2024-08-26 15:25] LABS: Alanine Aminotransferase 12 U/L (7-40); Alkaline Phosphatase 96 U/L (46-116); Anion Gap 8 (5-15); BUN/Creatinine Ratio 13.5 (10.0-20.0); Blood Urea Nitrogen 12 mg/dL (9-23); Calcium 9.0 mg/dL (8.7-10.4); Carbon Dioxide 26 mmol/L (20-31); Chloride 105 mmol/L (98-107); Glucose 95 mg/dL (74-106); Potassium 4.3 mmol/L (3.5-5.1); Sodium 139 mmol/L (136-145); Total Protein 6.5 g/dL (5.7-8.2)
[2024-08-26 15:26] LABS: Albumin 3.6 g/dL (3.2-4.8); Bilirubin, Total 0.5 mg/dL (0.2-1.0)
[2024-08-26] MEDS: cefTRIAXone 1GM/50ML D5W 50 ML IV ONE (15:47)
[2024-08-26 17:45] VITALS: BP 108/66; PULSE 80; RESP 14; O2SAT 96
[2024-08-26 18:44] LABS: Urine Protein, UAD 2+ (Negative)
[2024-08-26 18:52] LABS: Amphetamine Screen, Urine Pos (NEGATIVE); Barbiturate Scree,Urine Neg (NEGATIVE); Benzodiazephine Screen, Urine Neg (NEGATIVE); Cannabinoid Screen, Urine Neg (NEGATIVE); Cocaine Screen, Urine Neg (NEGATIVE); Opiate Scree,Urine Neg (NEGATIVE); Phencyclidine Screen, Urine Neg (NEGATIVE)
[2024-08-26] MEDS ORDERED: TEMAZEPAM 15 MG CAP PO PRN (19:00)
[2024-08-26] MEDS ORDERED: HYDROcodone-ACET 5/325MG TAB PO PRN (19:00)
[2024-08-26] MEDS ORDERED: MORPHINE SULFATE INJ 2 MG/ml SYRG IV PRN (19:00)
[2024-08-26] MEDS ORDERED: VANCOMYCIN PER PHARMACY 0 MG IV SCH (19:00)
[2024-08-26] MEDS ORDERED: ACETAMINOPHEN 325 MG TAB PO PRN (19:00)
[2024-08-26] MEDS ORDERED: ONDANSETRON HCL 4 MG/2 ML VIAL IV PRN (19:00)
[2024-08-26] MEDS ORDERED: VANCOMYCIN 1.25GM/250ML 250 ML IV SCH (20:00)
[2024-08-27] MEDS ORDERED: cefTRIAXone 1GM/50ML D5W 50 ML IV SCH (09:00)
--- NOTE | 2024-08-27 15:23 | DVHPN2 ---
Reviewed: Care Plan Objective Vitals Vital Signs Date Time Temp Pulse Resp B/P (MAP) Pulse Ox O2 Delivery O2 Flow Rate FiO2 08/26/24 17:45 80 14 108/66 (80) 96 08/26/24 14:14 99.3 99.3 Medications Current Medications Medications Dose Ordered Sig/Je Route Start Time Stop Time Status Last Admin Dose Admin Ceftriaxone Sodium 50 ml @ 100 mls/hr DAILY@09 IV 08/27/24 09:00 Vancomycin HCl 0 ml @ 0 mls/hr UD IV 08/26/24 19:00 Acetaminophen/ Hydrocodone Bitart 1 tab Q4HP PRN PO 08/26/24 19:00 Temazepam 15 mg QHSP PRN PO 08/26/24 19:00 Ondansetron HCl 4 mg Q4HP PRN IV 08/26/24 19:00 Acetaminophen 650 mg Q6HP PRN PO 08/26/24 19:00 Morphine Sulfate 2 mg Q6HPRN PRN IV 08/26/24 19:00 Vancomycin HCl 250 ml @ 200 mls/hr Q12H IV 08/26/24 20:00 Laboratory Results Laboratory Tests 08/26/24 14:50 Urinalysis Test 08/26/24 18:24 Urine Color Yellow (Yellow) Urine Clarity Clear (Clear) Urine pH 6.5 (5.0-9.0) Urine Specific [place] 1.042 (1.001-1.035) Urine Protein 2+ (Negative) H Urine Ketones Trace (Negative) Urine Blood 3+ /uL (Negative) H Urine Nitrite Negative (Negative) Urine Bilirubin 1+ (Negative) Urine Urobilinogen Over mg/dL (Negative) Urine Leukocyte Esterase 1+ /uL (Negative) Urine RBC 252 /hpf (0 - 3) Urine Microscopic WBC 20 /HPF (0-3) H Urine Squamous Epithelial Cells Few /hpf (<5) Urine Bacteria Few /hpf (None Seen) H Urine Mucus Few (None Seen) Urine Glucose Normal mg/dL (Normal) Microbiology Microbiology Date/Time Source Procedure Growth Status 08/26/24 14:50 Blood Blood Culture - Preliminary NO GROWTH AFTER 24 HOURS OF INCUBATION. Resulted Assessment/Plan Assessment/Plan 34 year old homeless male presents to the ER w/ prior MHx of CVA(x3 w/ left sided deficits), Asthma, Anxiety, HTN and the c/c of an animal bite to the posterior aspect of the right calf yesterday while walking on [address] Denies abnormal animal behavior Date of Service: Aug 27, 2024 PAGE OLIVA DO Aug 27, 2024 15:22
== END 2024-08-27 18:50 | disposition left against medical advice (07) | DRG 383 ==
LOC: ER 14:08 → OVERFLOW 18:53 → ER 18:55
PROVIDERS: ADMIT Internal Medicine; ATTEND Internal Medicine
DX: L03.115 Cellulitis of right lower limb (principal); F17.210 Nicotine dependence, cigarettes, uncomplicated; J45.909 Unspecified asthma, uncomplicated; I10 Essential (primary) hypertension; L60.0 Ingrowing nail; N39.0 Urinary tract infection, site not specified; F41.9 Anxiety disorder, unspecified; Z53.29 Procedure and treatment not carried out because of patient's decision for other reasons; Z86.73 Personal history of transient ischemic attack (TIA), and cerebral infarction without residual deficits; Z59.00 Homelessness unspecified; W54.0XXA Bitten by dog, initial encounter; Y93.89 Activity, other specified; Y92.89 Other specified places as the place of occurrence of the external cause; Y99.8 Other external cause status
CPT/HCPCS: 36415; 80053; 80307; 81001; 83605; 85025; 85652; 86141; 87040; 96365; G0378; J3490

== ENCOUNTER 2024-08-29 19:38 | Emergency (ER) | payer MEDICAID ==
[~2024-08-29] VITALS: Ht 157.5 cm; Wt 63.5 kg
[2024-08-29] MEDS ORDERED: IBUP-1455 PO (20:11)
--- NOTE | 2024-08-29 20:11 | ED.PDOC ---
History of Present Illness HPI Comments This patient is a 34-year-old male who returns to the ED today for evaluation of right lower extremity dog bite wounds sustained three days ago. Patient came to the facility at that time and left AMA due to concerns. Patient was given a prescription for clindamycin for which the patient picked up last night. Patient is a only taken one dose today. Patient arrives for a wound check. Patient denies any fever nausea or vomiting. Vital signs were stable. Chief Complaint: Wound Check Time Seen by MD: 19:54 Primary Care Provider: UNKNOWN Allergies: Coded Allergies: NO KNOWN ALLERGIES (Unverified , 07/20/12) Information Source: Patient Mode of Arrival: Ambulatory Severity: Moderate Timing: Days Duration: Since onset Prehospital treatment: None Past Medical History PAST MEDICAL HISTORY: Anxiety, Asthma, CVA, HTN Surgical History: Denies all surgeries Family History Family History: Reviewed,noncontributory to illness, Unknown Social History Smoker: Cigarettes Alcohol: Denies ETOH Use Drugs: Marijuana, Methamphetamine, Other Lives In: Home Constitutional: denies: chills, diaphoresis, fatigue, fever, malaise, sweats, weakness, others EENTM: denies: blurred vision, double vision, ear bleeding, ear discharge, ear drainage, ear pain, ear ringing, eye pain, eye redness, hearing loss, mouth pain, mouth swelling, nasal discharge, nose bleeding, nose congestion, nose pain, photophobia, tearing, throat pain, throat swelling, voice changes, others Respiratory: denies: cough, hemoptysis, orthopnea, SOB at rest, shortness of breath, SOB with excertion, stridor, wheezing, others Cardiovascular: denies: chest pain, dizzy spells, diaphoresis, Dyspnea on exertion, edema, irregular heart beat, left arm pain, lightheadedness, palpitations, PND, syncope, others Gastrointestinal: denies: abdomen distended, abdominal pain, blood streaked bowels, constipated, diarrhea, dysphagia, difficulty swallowing, hematemesis, melena, nausea, poor appetite, poor fluid intake, rectal bleeding, rectal pain, vomiting, others Genitourinary: denies: burning, dysuria, flank pain, frequency, hematuria, incontinence, penile discharge, penile sore, pain, testicle pain, testicle swelling, urgency, others Neurological: denies: dizziness, fainting, headache, left sided numbness, left sided weakness, numbness, paresthesia, pre-existing deficit, right sided numbness, right sided weakness, seizure, speech problems, tingling, tremors, we akness, others Musculoskeletal: denies: back pain, gout, joint pain, joint swelling, muscle pain, muscle stiffness, neck pain, others Integumetry: reports: others (Dog bite to right calf); denies: bruises, change in color, change in hair/nails, dryness, laceration, lesions, lumps, rash, wounds Allergic/Immunocompromised: denies: Difficulty Healing, Frequent Infections, Hives, Itching, others Hematologic/Lymphatic: denies: anemia, blood clots, easy bleeding, easy bruising, swollen glands, others Endocrine: denies: excessive hunger, excessive sweating, excessive thirst, excessive urination, flushing, intolerance to cold, intolerance to heat, unexplained weight gain, unexplained weight loss, others Psychiatric: denies: anxiety, bipolar disorder, depression, hopeless, panic disorder, schizophrenia, sleepless, suicidal, others Physical Exam General Appearance: Mild Distress (Moderate distress due to anxiety related to his event and fears of having his leg cut off rather than definitive pain issues.), Normal HEENT: Normal ENT Inspection, Pharynx Normal, TMs Normal Neck: Full Range of Motion, Non-Tender, Normal, Normal Inspection Respiratory: Chest Non-Tender, Lungs Clear, No Accessory Muscle Use, No Respiratory Distress, Normal Breath Sounds Cardiovascular: No Edema, No JVD, No Murmur, No Gallop, Normal Peripheral Pulses, Regular Rate/Rhythm Breast Exam: Deferred Gastrointestinal: No Organomegaly, Non Tender, No Pulsatile Mass, Normal Bowel Sounds, Soft Genitalia: Deferred Pelvic: Deferred Rectal: Deferred Extremities: No calf tenderness, Normal capillary refill, Normal inspection, Normal range of motion, Non-tender, No pedal edema 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 Localized edema with minimal erythema. No lymphangitis) Lymphatic: No Adenopathy Was a procedure done? Was a procedure done?: No Differential Dx Considerations may include: Dog bite, cellulitis X-Ray, Labs, Meds, VS Vital Signs Date Time Temp Pulse Resp B/P (MAP) Pulse Ox O2 Delivery O2 Flow Rate FiO2 08/29/24 19:45 98.4 82 16 140/73 (95) 97 98.4 X-Ray, Labs, Meds, VS Comment Spent time discussing the injury with the patient. Advised he needs to utilize the clindamycin to stave off any infection as he has only taken one dose today. Advised Tylenol and or Motrin as needed for pain relief. Time of 1ST Reevaluation: 20:09 Reevaluation 1ST: Improved Consultation: PCP Patient Education/Counseling: Diagnosis, Treatment Family Education/Counseling: Diagnosis, Treatment SEPSIS Sepsis Screen Date sepsis recognized/suspect: Aug 29, 2024 Time Sepsis recognized/suspect: 1944 Recent Procedure: No On Antibiotic Therapy: Yes Respiratory Rate >20: No Heart Rate >90: No Temp<36 C (96.8 F) or >38.3 C: No SBP <90 or MAP <65 mmHG: No New Acute Mental Status Change: No Is the patient on CPAP, BIPAP,: No Vital Signs Date Time Temp Pulse Resp B/P (MAP) Pulse Ox O2 Delivery O2 Flow Rate FiO2 08/29/24 19:45 98.4 82 16 140/73 (95) 97 98.4 Departure 1 Departure Time of Disposition: 20:10 Impression: Primary Impression: Dog bite Disposition: 01 HOME / SELF CARE / HOMELESS Condition: Stable Additional Instructions: Advised patient utilize antibiotics as directed by prior provider. Pain medication as needed. Advised keeping the wound clean and dressed. e-Prescriptions Ibuprofen Micronized (Ibuprofen) 800 Mg Tab 800 MG PO Q8HP PRN, #20 TAB Prov: RACHANA WARD PAC 08/29/24 Discharged With: Self Critical Care Note Critical Care Time?: No Stability Stability form required: No Heart Score Heart Score: Heart Score Response (Comments) Value History N/A 0 EKG N/A 0 Age N/A 0 Risk Factors N/A 0 Troponin N/A 0 Total 0 RACHANA WARD PAC Aug 29, 2024 20:11
[2024-08-29 23:45] VITALS: BP 143/88; PULSE 66; RESP 18; TEMP 97.8; O2SAT 98
[2024-08-29] MEDS: IBUPROFEN 800 MG TAB PO ONE (23:46)
== END 2024-08-30 00:10 | disposition home or self-care (01) ==
LOC: ER 19:38
DX: S81.831D Puncture wound without foreign body, right lower leg, subsequent encounter (principal); X58.XXXD Exposure to other specified factors, subsequent encounter; I10 Essential (primary) hypertension; F17.210 Nicotine dependence, cigarettes, uncomplicated; J45.909 Unspecified asthma, uncomplicated; Z86.73 Personal history of transient ischemic attack (TIA), and cerebral infarction without residual deficits